=== PATIENT | male | born 1985 | race Two or more races ===

== ENCOUNTER 2017-03-11 20:36 | Emergency (ER) | payer SELFPAY ==
[~2017-03-11] VITALS: Ht 170.2 cm; Wt 84.8 kg
--- NOTE | ~2017-03-11 | CR142 ---
[facility]. [facility] A Service of [facility] & [facility] RADIOLOGY TEXT RESULTS PATIENT: MAX ARGUELLES LOCATION: SED : [birth year] UNIT #: [id number] AGE: [address]: JOSSY ISAAC SEX: M ORDER DR: [id number] [place] [id number] E MR#: [id number] Acc #: [id number] NAME: MAX ARGUELLES : 1985 SEX: M STUDY DATE/TIME: 03/11/2017 20:59 UNIT: SED ROOM: STUDY DESCRIPTION: CR Hand Min 3 Views Rt Attending Physician: Angel Webber Ordering Physician: Angel Webber Primary Care Physician: Primary Care Physician No MEDICAL IMAGING REPORT This report is preliminary unless electronic signature is present. EXAM Right hand, 03/11/2017 INDICATION Hand pain today after drill slipped and patient smashed hand. FINDINGS Three views of the right hand were obtained. No comparison. There is an oblique, minimally displaced fracture through the diaphysis of the fifth proximal phalanx. There is also an oblique fracture through the diaphysis of the fourth metacarpal with very slight volar angulation. No other fractures are seen. The remainder of the hand is within normal limits. IMPRESSION Oblique fractures of the diaphysis of the fourth metacarpal and the fifth proximal phalanx. Dictated by... Dangelo Hernandez Jr., M.D. THIS IS AN ELECTRONICALLY VERIFIED REPORT Dangelo Hernandez Jr., M.D. at 03/12/2017 10:02 AM CARRIE/roberth TD: 03/11/2017 23:03 JOB #: [id number] MEDICAL IMAGING REPORT Page 1 of 1
[2017-03-11] MEDS ORDERED: INSULIN (20:50)
== END 2017-03-11 22:36 | disposition home or self-care (01) ==
LOC: SED 20:36
DX: S62.324A Displaced fracture of shaft of fourth metacarpal bone, right hand, initial encounter for closed fracture (principal); S62.336A Displaced fracture of neck of fifth metacarpal bone, right hand, initial encounter for closed fracture; E11.9 Type 2 diabetes mellitus without complications; F17.210 Nicotine dependence, cigarettes, uncomplicated; W20.8XXA Other cause of strike by thrown, projected or falling object, initial encounter; Y92.009 Unspecified place in unspecified non-institutional (private) residence as the place of occurrence of the external cause
CPT/HCPCS: 29125; 73130; 99283